=== PATIENT | female | born 1990 | race African-American/Black ===

== ENCOUNTER 2022-02-22 09:28 | Emergency (ER) | payer OTHER ==
[~2022-02-22] VITALS: Ht 167.6 cm; Wt 96.2 kg
[2022-02-22] MEDS ORDERED: BUTALBIT-ACETA1 EACH PO (10:00)
== END 2022-02-22 11:10 | disposition home or self-care (01) ==
LOC: ER 09:28
DX: R51.9 Headache, unspecified (principal)